=== PATIENT | male | born 1960 | race Caucasian/White ===

== ENCOUNTER 2016-08-20 12:00 | Emergency (ER) | payer MEDICAID, OTHER ==
[~2016-08-20] VITALS: Ht 172.7 cm; Wt 77.1 kg
[~2016-08-20 12:00] MED LIST: ALPR2TAB7 PO; BECL8.7A6 IH; CARI350T PO; DIPH1TAB PO; FLUR30CA13 PO; HYDR-3326 PO; METO100T7 PO; NAPR220T66 PO; ROSU20TA PO; SOLI5TAB PO; [UNRECOGNIZED DRUG - CODE] PO
--- NOTE | 2016-08-20 12:51 | NUR ---
dr judd at the bedside for eval and exam.
[2016-08-20 12:59] VITALS: BP 118/73
--- NOTE | 2016-08-20 12:59 | NUR ---
Patient discharged to home in stable conditon. Written and verbal after care instructions given. Patient verbalizes understanding of instructions.
== END 2016-08-20 12:59 | disposition home or self-care (01) ==
LOC: ER 12:00
DX: K04.7 Periapical abscess without sinus (principal); K02.9 Dental caries, unspecified; F10.20 Alcohol dependence, uncomplicated; F17.200 Nicotine dependence, unspecified, uncomplicated; Z88.0 Allergy status to penicillin
CPT/HCPCS: A4663

== ENCOUNTER 2016-11-11 14:27 | Inpatient (IN) | payer MEDICAID ==
[~2016-11-11] VITALS: Ht 170.2 cm; Wt 79.4 kg
--- NOTE | 2016-11-11 14:42 | NUR ---
PT IS IN ROOM #2B. DR BALDWIN EVALUATED THE PT.
[2016-11-11 14:58] LABS: BASOPHILS # (AUTO) 0.1 K/uL (0.0-8.0); BASOPHILS % (AUTO) 0.9 % (0.0-2.0); EOSINOPHILS # (AUTO) 0.3 K/uL (0.0-0.7); EOSINOPHILS % (AUTO) 2.6 % (0.0-7.0); HEMATOCRIT 41.7 % (40-50); HEMOGLOBIN 13.8 G/DL (14.0-18.0); LYMPHOCYTES # (AUTO) 3.6 K/UL (0.8-4.8); LYMPHOCYTES % (AUTO) 28.4 % (20.5-51.5); MEAN CORPUSCULAR HEMOGLOBIN 34.1 UUG (27.0-31.0); MEAN CORPUSCULAR HGB CONC 33 g/dL (32.0-37.0); MEAN CORPUSCULAR VOLUME 103.4 FL (82.0-92.0); MONOCYTES # (AUTO) 1.4 K/UL (0.1-1.30); MONOCYTES % (AUTO) 10.9 % (0.0-11.0); NEUTROPHILS # (AUTO) 7.4 K/UL (1.8-8.9); NEUTROPHILS % (AUTO) 57.2 % (38.5-71.5); PLATELET COUNT (AUTO) 252 K/UL (150-450); RED BLOOD CELL COUNT(AUTO) 4.04 MIL/UL (4.7-6.1); WHITE BLOOD COUNT (AUTO) 12.8 K/UL (4.0-11.2)
[2016-11-11 15:02] LABS: CREATININE 0.7 mg/dL (0.6-1.3); POTASSIUM 3.9 mmol/L (3.5-5.1)
[2016-11-11 15:08] LABS: BILIRUBIN,DIRECT 0.1 mg/dL (0.0-0.2); BILIRUBIN,TOTAL 0.4 mg/dL (0.2-1.0); TOTAL PROTEIN, SERUM 7.4 g/dL (6.4-8.2)
[2016-11-11] MEDS ORDERED: IV NORMAL SALINE 1000 ML BAG IV ONE (16:45)
[2016-11-11] MEDS ORDERED: IV D5/ 0.9% NACL 1,000 ML IV STA (16:51)
[2016-11-11] MEDS ORDERED: ACETAMINOPHEN 650 MG SUPP.RECT RC PRN (17:15)
[2016-11-11] MEDS ORDERED: THIAMINE HCL INJ 100 MG in IV DEXTROSE 5% 50 ML IV SCH (17:15)
[2016-11-11] MEDS ORDERED: ONDANSETRON 4 MG/2 ML VIAL IV PRN (17:15)
[2016-11-11] MEDS ORDERED: FOLIC ACID 1 MG in IV DEXTROSE 5% 50 ML IV SCH (17:15)
[2016-11-11 17:27] LABS: ACETAMINOPHEN < 2.0 ug/mL (10-30)
--- NOTE | 2016-11-11 17:29 | NUR ---
DR LIZ EVALUATED THE PT.
[2016-11-11 17:34] LABS: *BILIRUBIN,URIN NEGATIVE (NEGATIVE); *BLOOD, URINE NEGATIVE (NEGATIVE); *CLARITY,URINE CLEAR (CLEAR); *COLOR,URINE YELLOW (YELLOW); *KETONES,URINE NEGATIVE (NEGATIVE); *PROTEIN,URINE NEGATIVE (NEGATIVE); *UROBILINOGEN,URINE 0.2 E.U./dl (NORMAL); LEUKOCYTE ESTERASE ,URINE NEGATIVE (NEGATIVE); NITRITE, URINE NEGATIVE (NEGATIVE); PH,URINE 5.5 (5.0-8.0); UGLUCOSE NEGATIVE (NEGATIVE)
[2016-11-11 17:46] LABS: SQUAMOUS EPITHELIAL CELL,UR MODERATE /HPF (NONE SEEN); WBC,URINE 0-3 /HPF (0-3)
[2016-11-11 17:55] LABS: *AMPHETAMINE, URINE NEGATIVE (NEGATIVE); *BARBITURATE, URINE NEGATIVE (NEGATIVE); *CANNABINOID, URINE NEGATIVE (NEGATIVE); *COCCAINE, URINE NEGATIVE (NEGATIVE); *OPIATE, URINE NEGATIVE (NEGATIVE); *PHENCYCLIDINE SCREEN,URINE NEGATIVE (NEGATIVE)
--- NOTE | 2016-11-11 18:04 | NUR ---
REPORT WAS GIVEN TO [employer]ECKTIE OPERATOR. PT WAS TRANSFERED TO TELEMETRY ROOM #222.
--- NOTE | 2016-11-11 18:36 | NUR ---
admitted from er patient was found by paramedics from the street. Alert and very agitated upon arrival on the floor. Code preston called due to screaming, cursing staff and refused to go to bed. "I WANT TO GO HOME"
[2016-11-11 18:48] VITALS: BP 85/57
--- NOTE | 2016-11-11 18:48 | NUR ---
ORDERS NOTED FROM DR LIZ
[2016-11-11] MEDS: IV D5/ 0.9% NACL 1,000 ML IV PRN (19:04)
[2016-11-11] MEDS: ENOXAPARIN SODIUM 40 MG/0.4 ML DISP.SYRIN SQ SCH (19:07)
--- NOTE | 2016-11-11 19:30 | NUR ---
received patient alert,confused,calm down now, 1:1 sitter at bedside for safety,ivf D5 NS infusing at 250 ml/hr,completed bath given,notified patient is kept NPO,and he cooperative.
[2016-11-12] VITALS (10 sets, daily range): BP systolic 83–122; BP diastolic 45–80
--- NOTE | 2016-11-12 00:20 | NUR ---
bp 83/53,pulse 70,o2 sat 95% on o2 2l/m via n/c,respiration 18/min,nsr on monitor, notified of low BP, NS 1250 ml iv bolus given,patient alert,verbally responsive,continue closely monitor.
[2016-11-12] MEDS ORDERED: IV NS 1000 ML 1,000 ML IV ONE (00:30)
[2016-11-12] MEDS ORDERED: IV NORMAL SALINE 250 ML IV ONE (00:30)
[2016-11-12] MEDS: IV D5/ 0.9% NACL 1,000 ML IV PRN ×4 (01:38→20:46)
--- NOTE | 2016-11-12 02:57 | NUR ---
bp recheck 90/61,pulse 66 bpm,patient not in distress,dozing on and off.
--- NOTE | 2016-11-12 06:20 | NUR ---
BP 87/53,PULSE 64,LEFT MESSAGE TO DR. STREETER.
--- NOTE | 2016-11-12 07:00 | NUR ---
PATIENT AWAKE,MORE ALERT, C/O THIRSTY , BP RE CHEK 95/72,PULSE 79/MIN,NO ACUTE DISTRESS, CLOSELY MONITOR,SAFETY PRECAUTIONS.
--- NOTE | 2016-11-12 08:00 | NUR ---
awake alert and oriented x 4, calm and cooperative, denies of pain, still npo, states he's thirsty- oral care given, tele SR 60's, explained plan of care- verbalized understanding, needs attended, safety measures maintained-call light within reach
[2016-11-12 08:01] LABS: BASOPHILS # (AUTO) 0.1 K/uL (0.0-8.0); BASOPHILS % (AUTO) 1.2 % (0.0-2.0); EOSINOPHILS # (AUTO) 0.2 K/uL (0.0-0.7); EOSINOPHILS % (AUTO) 1.6 % (0.0-7.0); HEMATOCRIT 37.6 % (40-50); HEMOGLOBIN 12.9 G/DL (14.0-18.0); LYMPHOCYTES # (AUTO) 1.5 K/UL (0.8-4.8); MEAN CORPUSCULAR HEMOGLOBIN 35.5 UUG (27.0-31.0); MEAN CORPUSCULAR HGB CONC 34 g/dL (32.0-37.0); MEAN CORPUSCULAR VOLUME 103.5 FL (82.0-92.0); MONOCYTES # (AUTO) 1.1 K/UL (0.1-1.30); MONOCYTES % (AUTO) 8.8 % (0.0-11.0); NEUTROPHILS # (AUTO) 9.2 K/UL (1.8-8.9); NEUTROPHILS % (AUTO) 76.4 % (38.5-71.5); PLATELET COUNT (AUTO) 236 K/UL (150-450); RED BLOOD CELL COUNT(AUTO) 3.64 MIL/UL (4.7-6.1); WHITE BLOOD COUNT (AUTO) 12.1 K/UL (4.0-11.2)
[2016-11-12 08:14] LABS: CARBON DIOXIDE 23 mmol/L (21-32); CHLORIDE 108 mmol/L (98-107); CHOLESTEROL 127 mg/dL (<200); CREATININE 0.6 mg/dL (0.6-1.3); GLUCOSE 99 mg/dL (74-106); HDL CHOLESTEROL 61 mg/dL (40-60); MAGNESIUM 1.5 mg/dL (1.8-2.4); PHOSPHOROUS 2.9 mg/dL (2.5-4.9); POTASSIUM 3.8 mmol/L (3.5-5.1); TRIGLYCERIDES 39 MG/DL (30-150); UREA NITROGEN, BLOOD 6 mg/dL (7-18)
[2016-11-12 08:18] LABS: BAND % (MANUAL) 14 % (0-10); EOSINOPHILS % (MANUAL) 2 % (0-8); LYMPHOCYTES % (MANUAL) 10 % (20-40); MONOCYTES % (MANUAL) 8 % (2-10); NEUTROPHILS % (MANUAL) 66 % (42-75)
[2016-11-12] MEDS ORDERED: PANTOPRAZOLE SODIUM 40 MG VIAL IV SCH (09:00)
[2016-11-12 09:30] LABS: THYROID STIMULATING HORMONE 0.008 mIU/mL (0.358-3.740)
--- NOTE | 2016-11-12 10:00 | NUR ---
Dr Jha here- informed of pt's wanting to eat- regular diet ordered
--- NOTE | 2016-11-12 10:30 | NUR ---
TOLERATED REGULAR DIET WELL, TAKING FLUIDS WELL AND VOIDING QS
--- NOTE | 2016-11-12 12:30 | NUR ---
with tremors and anxious- BP 115/70 Hr 73- medicated wisdth Ativan 1 mg iv as prn- will continue to monitor
[2016-11-12] MEDS: LORAZEPAM 2 MG/1 ML VIAL IV PRN ×3 (12:33→21:55)
[2016-11-12] MEDS: FOLIC ACID 1 MG TABLET PO SCH (13:07)
[2016-11-12] MEDS: THIAMINE HCL 100 MG TABLET PO SCH (13:07)
[2016-11-12] MEDS: MAGNESIUM SULFATE/D5W 100 ML IV SCH ×2 (14:15→15:23)
--- NOTE | 2016-11-12 15:00 | NUR ---
dozing on and off, no tremors noted, vs wnl
[2016-11-12] MEDS: ENOXAPARIN SODIUM 40 MG/0.4 ML DISP.SYRIN SQ SCH (17:15)
--- NOTE | 2016-11-12 18:00 | NUR ---
medicated with Ativan 1 mg iv as prn for anxiety and mild tremors, BP113/64 HR 76, good appetite and taking fluids well, no n/v this shift, all needs attended and met, tele SR 70's, safety and comfort measures maintained, call light within reach
[2016-11-13] MEDS: IV D5/ 0.9% NACL 1,000 ML IV PRN ×2 (02:26→07:45)
[2016-11-13 04:00] VITALS: BP 127/61
[2016-11-13 06:37] LABS: BASOPHILS % (AUTO) 0.1 % (0.0-2.0); EOSINOPHILS # (AUTO) 0.2 K/uL (0.0-0.7); HEMOGLOBIN 12.5 G/DL (14.0-18.0); LYMPHOCYTES # (AUTO) 1.5 K/UL (0.8-4.8); LYMPHOCYTES % (AUTO) 12.5 % (20.5-51.5); MEAN CORPUSCULAR HEMOGLOBIN 35.8 UUG (27.0-31.0); MEAN CORPUSCULAR HGB CONC 35 g/dL (32.0-37.0); MEAN CORPUSCULAR VOLUME 103.2 FL (82.0-92.0); MONOCYTES # (AUTO) 1.1 K/UL (0.1-1.30); MONOCYTES % (AUTO) 9.5 % (0.0-11.0); NEUTROPHILS # (AUTO) 9.3 K/UL (1.8-8.9); NEUTROPHILS % (AUTO) 75.9 % (38.5-71.5); PLATELET COUNT (AUTO) 191 K/UL (150-450); RED BLOOD CELL COUNT(AUTO) 3.49 MIL/UL (4.7-6.1); WHITE BLOOD COUNT (AUTO) 12.1 K/UL (4.0-11.2)
[2016-11-13 06:40] LABS: CREATININE 0.7 mg/dL (0.6-1.3); MAGNESIUM 1.6 mg/dL (1.8-2.4); POTASSIUM 3.8 mmol/L (3.5-5.1)
--- NOTE | 2016-11-13 06:48 | NUR ---
PATIENT SLEPT WELL, IN NO ACUTE DISTRESS. IVF RUNNING/INTACT, NO S/S OF INFILTRATION. SAFETY MEASURES IN PLACE, CALL LIGHT WITHIN REACH, BED ALARM ON. WILL CONTINUE TO MONITOR.
[2016-11-13 06:56] LABS: THYROID STIMULATING HORMONE 1.985 mIU/mL (0.358-3.740)
[2016-11-13] MEDS ORDERED: PANTOPRAZOLE SODIUM 40 MG TABLET.DR PO SCH (07:00)
[2016-11-13 07:31] LABS: BAND % (MANUAL) 10 % (0-10); BASOPHILS % (MANUAL) 1 % (0-2); EOSINOPHILS % (MANUAL) 1 % (0-8); LYMPHOCYTES % (MANUAL) 15 % (20-40); MONOCYTES % (MANUAL) 8 % (2-10); NEUTROPHILS % (MANUAL) 65 % (42-75)
--- NOTE | 2016-11-13 07:46 | NUR ---
PT SLEEPING IN BED, AROUSES TO NAME, IN NO ACUTE DISTRESS ALL SAFETY AND COMFORT MEASURES ATTENDED TO, URINAL EMPTIED, CALL LIGHT IN REACH WILL CONTINUE TO MONITOR
[2016-11-13 08:40] LABS: PHOSPHOROUS 2.3 mg/dL (2.5-4.9)
[2016-11-13] MEDS: THIAMINE HCL 100 MG TABLET PO SCH (09:05)
[2016-11-13] MEDS: FOLIC ACID 1 MG TABLET PO SCH (09:05)
[2016-11-13 11:28] VITALS: BP 96/51
[2016-11-13] MEDS ORDERED: FOLI1TAB16 PO (13:18)
[2016-11-13] MEDS ORDERED: THIA100T13 PO (13:18)
[2016-11-13] MEDS ORDERED: MAGNESIUM SULFATE/D5W 100 ML IV SCH (14:00)
[2016-11-13] MEDS ORDERED: MAGNESIUM OXIDE 400 MG TABLET PO ONE (14:15)
[2016-11-13 15:07] VITALS: BP 113/75
[2016-11-13] MEDS ORDERED: NEUTRA PHOS PACKET PO ONE (15:15)
--- NOTE | 2016-11-13 16:02 | NUR ---
DISCHARGE PROTOCOL FOLLOWED, WAS WALKING TO ROOM WITH PAPERWORK AND PT WAS WALKING OUT OF ROOM, ASKED HIM TO GO BACK INSIDE TO REMOVE IV AND SIGN PAPERWORK. PT AGREED. IV REMOVED WITH NO REDNESS OR IRRITATION NOTED, ID BAND REMOVED. DISCHARGE INSTRUCTIONS GIVEN, PT VERBALIZED UNDERSTANDING. ALL BELONGINGS ACCOUNTED FOR AND SENT WITH PT.
== END 2016-11-13 16:00 | disposition home or self-care (01) | DRG 775 ==
LOC: ER 14:27 → TELE 18:13
DX: F10.229 Alcohol dependence with intoxication, unspecified (principal); G92 Toxic encephalopathy; I95.2 Hypotension due to drugs; M48.02 Spinal stenosis, cervical region; F20.9 Schizophrenia, unspecified; Y90.8 Blood alcohol level of 240 mg/100 ml or more; Z59.0 Homelessness; M47.812 Spondylosis without myelopathy or radiculopathy, cervical region; M47.894 Other spondylosis, thoracic region; F17.210 Nicotine dependence, cigarettes, uncomplicated; M77.9 Enthesopathy, unspecified; E05.90 Thyrotoxicosis, unspecified without thyrotoxic crisis or storm; D75.89 Other specified diseases of blood and blood-forming organs
CPT/HCPCS: 36415; 70450; 71010; 72125; 80307; 83605; 83690; 83735; 84100; 84443; 85025; 87040; 93005; A4663; C1758; C9113; G0480; G0480-TC; J1650; J2060; J3411; J3475; J3490; J7030; J7040; J7042; J7060

== ENCOUNTER 2016-11-22 20:47 | Emergency (ER) | payer MEDICAID ==
[~2016-11-22 20:47] MED LIST changes: -ALPR2TAB7 PO; -BECL8.7A6 IH; -CARI350T PO; -DIPH1TAB PO; -FLUR30CA13 PO; +FOLI1TAB16 PO; -HYDR-3326 PO; -METO100T7 PO; -NAPR220T66 PO; -ROSU20TA PO; -SOLI5TAB PO; +THIA100T13 PO; -[UNRECOGNIZED DRUG - CODE] PO
--- NOTE | 2016-11-22 20:52 | NUR ---
CALLED FOR PT NO ANSWER LWBT
== END 2016-11-22 20:54 | disposition left against medical advice (07) ==
LOC: ER 20:47
DX: M25.529 Pain in unspecified elbow (principal); Z53.21 Procedure and treatment not carried out due to patient leaving prior to being seen by health care provider

== ENCOUNTER 2017-01-01 13:29 | Emergency (ER) | payer MEDICAID ==
[~2017-01-01] VITALS: Ht 172.7 cm; Wt 77.1 kg
--- NOTE | 2017-01-01 15:44 | NUR ---
Pt is sleeping with no s/s of distress noted.
--- NOTE | 2017-01-01 19:10 | NUR ---
Pt still sleeping with NAD noted, report given to shift mgr.
--- NOTE | 2017-01-01 19:15 | NUR ---
Pt is received alert, responsive as he is sleeping with no s/s off distress as report is received from the off going nurse that he came in with [place] Intoxication , was found infront of a restairant and EMS was called. He care continue while monitor and will be discharge as fully awake.
--- NOTE | 2017-01-01 21:27 | NUR ---
Pt is still sleeping as he is been moved to room 5A.
--- NOTE | 2017-01-01 22:45 | NUR ---
Patient ambulated with stable gait, ER MD cleared patient for discharge.
--- NOTE | 2017-01-01 22:46 | NUR ---
Patient discharged to home in stable conditon. Written and verbal after care instructions given. Patient verbalizes understanding of instructions. Patient ambulated from ER with stable gait. patient states he is living with his friend in [place] and will go there. Patient given a list of homeless shelters in the event it is needed. All belongigns taken home with patien. No further distress noted.
[2017-01-01 22:47] VITALS: BP 127/78
== END 2017-01-01 22:49 | disposition home or self-care (01) ==
LOC: ER 13:29
DX: F10.129 Alcohol abuse with intoxication, unspecified (principal); Z59.0 Homelessness; Z88.0 Allergy status to penicillin
CPT/HCPCS: A4663

== ENCOUNTER 2017-08-22 19:29 | Emergency (ER) | payer MEDICAID, OTHER ==
[~2017-08-22] VITALS: Ht 170.2 cm; Wt 79.4 kg
--- NOTE | 2017-08-22 20:07 | NUR ---
Dr. Edwards at bedside for MSE.
[2017-08-22] MEDS ORDERED: KETOROLAC TROMETHAMINE 30 MG INJ IM ONE (20:15)
[2017-08-22] MEDS ORDERED: KETOROLAC TROMETHAMINE 30 MG INJ ONE (20:18)
--- NOTE | 2017-08-22 20:24 | NUR ---
Patient discharged to home in stable conditon. Written and verbal after care instructions given. Patient verbalizes understanding of instructions. Pt ambulated out of ER with steady gait, no acute signs of distress, VSS, all belongings taken.
[2017-08-22 20:28] VITALS: BP 133/78
== END 2017-08-22 20:28 | disposition home or self-care (01) ==
LOC: ER 19:30
DX: M25.511 Pain in right shoulder (principal); F10.20 Alcohol dependence, uncomplicated; Z59.0 Homelessness; Z88.0 Allergy status to penicillin; F17.200 Nicotine dependence, unspecified, uncomplicated
CPT/HCPCS: 96372; 99283; A4663; J1885

== ENCOUNTER 2017-09-26 23:35 | Emergency (ER) | payer OTHER ==
[~2017-09-26] VITALS: Ht 170.2 cm; Wt 79.4 kg
--- NOTE | 2017-09-26 23:55 | NUR ---
PT BIB [id number] WITH ETOH INTOXICATION. PT ALSO C/O NECK PAIN. PER PT, HE WAS RECENTLY SEEN IN ANOTHER ER 2 WEEKS AGO AND WAS DX WITH CERVICAL SPRAIN. PT IS AAOX2. PT IS CALM, COOPERATIVE AT THIS TIME.
--- NOTE | 2017-09-27 00:56 | NUR ---
PER MD, PT IS STABLE TO GO HOME ONCE SOBER.
--- NOTE | 2017-09-27 03:26 | NUR ---
PT IS SLEEPING IN BED. VSS. NO ACUTE DISTRESS NOTED.
--- NOTE | 2017-09-27 05:31 | NUR ---
PT IS STILL SLEEPING IN BED. VSS. NO ACUTE DISTRESS NOTED
--- NOTE | 2017-09-27 06:03 | NUR ---
Patient discharged to home in stable conditon. Written and verbal after care instructions given. Patient verbalizes understanding of instructions. Pt is AAOX4. Pt ambulated out of ER in steady gait. All belongings with pt. No acute distress noted.
[2017-09-27 06:05] VITALS: BP 132/76
== END 2017-09-27 06:06 | disposition home or self-care (01) ==
LOC: ER 23:36
DX: M54.2 Cervicalgia (principal); F10.129 Alcohol abuse with intoxication, unspecified; F17.210 Nicotine dependence, cigarettes, uncomplicated; Z88.0 Allergy status to penicillin; Z59.0 Homelessness; Z79.899 Other long term (current) drug therapy
CPT/HCPCS: 99281; A4663

== ENCOUNTER 2018-05-23 18:53 | Emergency (ER) | payer OTHER ==
[~2018-05-23] VITALS: Ht 172.7 cm; Wt 83.9 kg
--- NOTE | 2018-05-23 19:45 | NUR ---
PATIENT C/O LEFT CHEST WALL X 5 DAY. PATIENT STATES PAIN STARTED AFTER MOVIBNG FURNITURE AROUND. HERE FOR EVAL
--- NOTE | 2018-05-23 20:00 | NUR ---
PATIENT LEFT WITHOUT BEING SEEN BY ERMD
== END 2018-05-23 21:34 | disposition left against medical advice (07) ==
LOC: ER 18:53
DX: Z53.21 Procedure and treatment not carried out due to patient leaving prior to being seen by health care provider (principal); R07.9 Chest pain, unspecified
CPT/HCPCS: 93005; A4663

== ENCOUNTER 2018-08-09 13:29 | Emergency (ER) | payer OTHER ==
[~2018-08-09] VITALS: Ht 177.8 cm; Wt 77.1 kg
--- NOTE | 2018-08-09 14:15 | NUR ---
PT IS IN ROOM #2B. DR DHALIWAL EVALUATED THE PT.
--- NOTE | 2018-08-09 16:16 | NUR ---
PT WAS D/C'D TO HOME. D/C INSTRUCTIONS GIVEN TO THE PT.
[2018-08-09 16:21] VITALS: BP 136/79
== END 2018-08-09 16:21 | disposition home or self-care (01) ==
LOC: ER 13:29
DX: S01.01XA Laceration without foreign body of scalp, initial encounter (principal); F17.200 Nicotine dependence, unspecified, uncomplicated; Z59.0 Homelessness; Z79.899 Other long term (current) drug therapy; X58.XXXA Exposure to other specified factors, initial encounter; Y93.89 Activity, other specified; Y92.89 Other specified places as the place of occurrence of the external cause; Y99.8 Other external cause status
CPT/HCPCS: A4663

== ENCOUNTER 2018-09-10 22:27 | Emergency (ER) | payer OTHER ==
[~2018-09-10] VITALS: Ht 172.7 cm; Wt 84.4 kg
--- NOTE | 2018-09-10 22:51 | NUR ---
Pt provided urine sample, sent to lab.
[2018-09-10 22:57] LABS: *BILIRUBIN,URIN NEGATIVE (NEGATIVE); *BLOOD, URINE NEGATIVE (NEGATIVE); *CLARITY,URINE CLEAR (CLEAR); *COLOR,URINE LIGHT YELLOW (YELLOW); *KETONES,URINE NEGATIVE (NEGATIVE); *UROBILINOGEN,URINE 0.2 E.U./dl (NORMAL); LEUKOCYTE ESTERASE ,URINE NEGATIVE (NEGATIVE); NITRITE, URINE NEGATIVE (NEGATIVE); UGLUCOSE NEGATIVE (NEGATIVE)
[2018-09-11] MEDS ORDERED: KETOROLAC TROMETHAMINE 30 MG INJ IM ONE
[2018-09-11] MEDS ORDERED: KETOROLAC TROMETHAMINE 30 MG INJ ONE (00:04)
--- NOTE | 2018-09-11 00:34 | NUR ---
Patient discharged to home in stable conditon. Written and verbal after care instructions given. Patient verbalizes understanding of instructions. Patient ambulated with stable gait. Patient has no form of payment or ride, but denies homelessness. Called loom fixer supervisor to see if patient qualifies. Route Sales Specialist provided patient with voucher.
[2018-09-11 01:06] VITALS: BP 121/83
== END 2018-09-11 00:40 | disposition home or self-care (01) ==
LOC: ER 22:29
DX: R51 Headache (principal); M54.5 Low back pain; F17.210 Nicotine dependence, cigarettes, uncomplicated; Z88.0 Allergy status to penicillin; Z79.899 Other long term (current) drug therapy; W01.198A Fall on same level from slipping, tripping and stumbling with subsequent striking against other object, initial encounter; Y93.89 Activity, other specified; Y92.89 Other specified places as the place of occurrence of the external cause; Y99.8 Other external cause status
CPT/HCPCS: 81001; 96372; 99283; 99406; J1885; A4217; A4663